=== PATIENT | female | born 1965 | race Two or more races ===

== ENCOUNTER 2021-06-30 07:10 | Outpatient (CLI) | payer OTHER | END 2021-06-30 07:11 | disposition home or self-care (01) | LOC: NUCLEAR 07:10 | PROVIDERS: ATTEND Internal Medicine Cardiovascular Disease | DX: I20.1 Angina pectoris with documented spasm (principal); I10 Essential (primary) hypertension | CPT/HCPCS: 78452; 93017; A9500; J1250 ==